=== PATIENT | female | born 1950 | race Caucasian/White ===

== ENCOUNTER 2019-12-30 21:38 | Observation (INO) ==
[2019-12-30] MEDS ORDERED: ORPHENADRINE CITRATE 30 MG/ML VIAL IM ONE (21:44)
--- NOTE | 2019-12-30 21:44 | ERNOTE ---
ER Burn HPI Stated Complaint: pain Time Seen by Provider: 12/30/19 21:40 Source: patient, EMS Exam Limitations: no limitations Immunizations: IMMUNIZATION HX Immunizations Up to Date Yes History of Influenza Vaccine No Allergies/Adverse Reactions: Allergies No Known Allergies Allergy (Verified 12/19/19 09:34) Home Medications: HOME MEDICATIONS acetaminophen 500 mg tablet 500 mg PO Q6H PRN 12/11/19 [Last Taken Unknown] apixaban 5 mg tablet 5 mg PO BID 12/11/19 [Last Taken Unknown] levothyroxine 112 mcg capsule 112 mcg PO DAILY 12/11/19 [Last Taken Unknown] multivitamin 1 tab PO DAILY 12/11/19 [Last Taken Unknown] oxybutynin chloride 10 mg tablet,extended release 24 hr 10 mg PO DAILY 12/11/19 [Last Taken Unknown] Calcium Carbonate/Vitamin D3 [Calcium 600-Vit D3 200 Tablet] 1 tab DAILY 12/19/19 [Last Taken Unknown] HYDROcodone/ACETAMINOPHEN [[place] 5-325 Tablet] 1 - 2 tab PO Q6H PRN #20 tab 12/19/19 [Last Taken 12/30/19 17:30] Metoprolol Tartrate [Lopressor] 25 mg PO DAILY PRN 12/19/19 [Last Taken Unknown] - History of Present Illness Narrative: Patient is a 69-year-old white female with past medical history significant for chronic atrial fibrillation is on Eliquis, had a left knee scope done on 12/19/2019 and had been doing well postoperatively until yesterday when she did fall but states she fell on her right side not the left side where the surgery was. Since then she has been having quite a bit of spasming in her left thigh calf and foot which is created additional pain in her left knee. She has been taking her Lortab without any relief of symptoms. Even tried to tablets without any relief. She did receive 50 mcg of fentanyl via EMS and that helped her symptoms slightly, but states pain still 9 out of 10. Time I saw her she states the pain was getting better. Still concerned that she has these spasms and cramps in her leg. She denies any chest pain or troubles breathing or intermittent claudications. She denies any fevers or chills or urinary symptoms or constipation. She does have a history of hypocalcemia, but no weakness, tingling or numbness that she has had with this. She does take a calcium tablet on a regular basis. She does have hypothyroidism but has not had any issues with her thyroid levels. Review of Systems - Review of Systems Constitutional: Absent: fever, chills, fatigue, malaise EYE: Present: no symptoms reported ENT: Present: no symptoms reported Respiratory: Absent: shortness of breath Cardiology: Absent: chest pain, palpitations Gastrointestinal/Abdominal: Present: no symptoms reported Genitourinary: Present: no symptoms reported Musculoskeletal: Present: See HPI, muscle pain, joint pain Skin: Present: no symptoms reported Neurological: Present: no symptoms reported Endocrine: Present: no symptoms reported Hematologic/Lymphatic: Present: no symptoms reported Psych: Present: no symptoms reported Medical History (Last Reviewed 12/30/19 @ 21:43 by Long Gonzalez MD) Atrial fibrillation Onset Date: Unknown Scoliosis Onset Date: Unknown Cancer of thyroid Onset Date: 04/2019 Surgical History: Surgical History (Last Reviewed 12/30/19 @ 21:43 by Long Gonzalez MD) History of cataract surgery Onset Date: Unknown age 59 approximately History of dilation and curettage Onset Date: Unknown age 22 History of foot surgery Onset Date: Unknown bunion surgery- approx age 40 History of lumbar laminectomy Onset Date: Unknown L3-L4 age 63 History of tubal ligation Onset Date: Unknown age 30 S/P right knee arthroscopy Onset Date: ~2009 Dr. Edwards S/P thyroidectomy Onset Date: ~04/2019 [facility]-thyroid cancer Status post lumbar surgery Onset Date: 2012 laminectomy and fusion L3-4, [facility]-Dr. Rao Family History: Family History (Last Reviewed 12/30/19 @ 21:43 by Long Gonzalez MD) Mother COPD (chronic obstructive pulmonary disease) Father Hypertension CVA (cerebral vascular accident) Blood clot in vein Social History: (Last Reviewed 12/30/19 @ 21:44 by Long Gonzalez MD) Social History: Marital status: lives independently: Yes household members: spouse number of children: 2 current occupational status: retired current occupation: retired Highest education level completed: high school graduate Service: No Tobacco: Smoking Status: Never smoker Alcohol: alcohol intake: current Dietary Habits: caffeine: Yes Physical Exam - Physical Exam General Appearance: Present: wd/wn, alert, mild distress, moderate distress Head Exam: Present: normal inspection, no evidence of injury Eye Exam: Normal inspection: bilateral, PERRL: bilateral, EOMI: bilateral Ears, Nose, Throat: Present: normal ENT inspection Neck: Present: supple Respiratory: Present: no respiratory distress, normal breath sounds, no accessory muscle use, lungs clear Cardiovascular/Chest: Present: regular rate, rhythm Peripheral Pulses: N=norm/S=strong/W=weak/B=bound/A=absent: Dorsalis-pedis (R): Normal, Dorsalis-pedis (L): Normal Gastrointestinal/Abdominal: Present: normal bowel sounds, nontender, nondistended, soft, no organomegaly Extremity Exam: Present: normal inspection, non-tender, no edema, other - Patient has yellow discoloration to the knee which is consistent with normal resolving bruising. There is no erythema or warmth in the knee. There is pain with movement of the leg. Neurological Exam: Present: alert, oriented, normal mood/affect, no motor/sensory deficits Skin Exam: Present: normal color, warm/dry Progress - Results and Orders Patient's Lab Results:: I have reviewed the patient's lab results. Results and Orders: CBC is normal. CMP: - Vital Signs Patient's Vital Signs:: I have reviewed the patient's vital signs. - Progress/Reassessment Chief Complaint: Lower Extremity Pain/ Injury Progress:: Unchanged Progress Note-Subjective: 12/30/19 22:11 Patient states that the Norflex has helped and she has much less pain now. She is able to move her foot and ankle without the spasms that she was having previously. patient is thirsty and requesting to drink water. Pt's BP is improved to 127/72. 12/30/19 22:13 12/30/19 22:59 Patient states that her left knee pain is starting to worsen again. Will do a trial with IV Toradol and do an ice pack to the knee. Labs are all negative for infection or concerns that would cause her to have cramping. Patient is on Eliquis so not concerned about a DVT. 12/30/19 23:00 12/30/19 23:03 Patient initially said that the Toradol seem to be helping some, but as soon as I mentioned discharging her home she said I do not think I can get into the car and then declared that the medicine was not helping. We will try a dose of Dilaudid IV. Will consider also doing a IV Valium. - Transfer of Care Expected Disposition: Admit Additional Notes: Case discussed with Dr. Ruiz who is agreeable to admit the patient to observation for pain control. Discussed with her I do not believe that there is hemarthrosis or significant injury to the knee requiring any imaging at this time or Ortho consultation. We will do IV Dilaudid 1 mg every 2 hours for pain control as I believe this will be adequate and she should be okay to go home in the morning as this seems to be working well for her and she could be switched to oral medications tomorrow. Plan - Plan Plan: Given her history of complaining of muscle spasms we will check potassium and calcium levels. We will do a dose of IV Norflex. We will also check a CBC to be sure there is no concerns for infections though I do not see any concerns on physical exam. With Norflex helping her symptoms, assuming no abnormalities on labs will plan on sending her home on some cyclobenzaprine. Given her pain is not well controlled with her current pain medicines, may try some IV Dilaudid and possibly change her prescription to Dilaudid. Pain is definitely better but patient is very somnolent and difficult to arouse. This point feel she would be incapable of going home and would have some concern with her O2 sats dropping into the mid 80s at times. Feel would be appropriate to at least observe her overnight for pain control and O2 to keep her sats in at least the low 90's. will cover pain with IV Dilaudid but will do a 1 mg IV instead of the 2 mg we gave earlier. We will keep her on 1 L of O2 to keep her sats in the low 90s. We will do as needed Zofran for any nausea that she may have from the pain medicines. Departure Clinical Impression: Muscle spasm of left lower extremity, Failure of outpatient treatment Left knee pain Qualifiers: Chronicity: acute Qualified Code(s): M25.562 - Pain in left knee - Departure Disposition: Still a patient Condition: Stable
[2019-12-30] MEDS ORDERED: ORPHENADRINE CITRATE 30 MG/ML VIAL IV ONE (21:47)
[2019-12-30 22:06] LABS: Hematocrit 38.3 % (37.0-47.0); Hemoglobin 12.9 gm/dL (12.5-16.0); Mean Corpuscular Hemoglobin 29.3 pg (27-31); Mean Corpuscular Hgb Conc 33.7 g/dl (32-36); Mean Platelet Volume 9.8 fl (8-12.5); Neutrophil % 70.6 % (42-75.0); Platelet Count 317 K/mm3 (150-450); Red Cell Distribution Width 12.6 % (11.5-14.0); White Blood Count 8.5 K/mm3 (4.0-10.5)
[2019-12-30 22:20] LABS: Albumin * 3.5 gm/dl (3.4-5.0); Anion Gap 14.7 mmol/L (6.8-13.8); BUN/Creatinine Ratio 14.6 (9.0-21.6); Bilirubin, Total 0.5 mg/dL (0.0-1.1); Ca. Corrected For Albumin 8.8 mg/dL (8.4-10.2); Calcium * 8.7 mg/dL (7.9-10.9); Carbon Dioxide 26.7 mmol/L (24-32.6); Potassium 3.4 mmol/L (3.4-4.6)
[2019-12-30] MEDS ORDERED: KETOROLAC TROMETHAMINE 30 MG/ML VIAL IV ONE (22:36)
[2019-12-30] MEDS ORDERED: HYDROmorphone HCL 2 MG/ML VIAL IV ONE (23:03)
[2019-12-30] MEDS ORDERED: ONDANSETRON HCL/PF 2 MG/ML VIAL IV PRN (23:58)
[2019-12-30] MEDS ORDERED: HYDROmorphone HCL 1 MG/ML DISP.SYRIN IV PRN (23:58)
[2019-12-31] MEDS: ONDANSETRON HCL/PF 2 MG/ML VIAL IV PRN ×3 (01:23→11:29)
--- NOTE | 2019-12-31 11:24 | HPDIS ---
Chief Complaint - Chief Complaint Date of Service: 12/31/19 Time of Service: 10:55 Chief Complaint: I have left knee pain History of Present Illness: 69-year-old female with past medical history of atrial fibrillation and thyroid cancer was brought to the ER by EMS due to significant left knee pain and swelling over the past several days. Patient underwent a left knee arthroscopy by her orthopedic surgeon 2 weeks ago and was discharged home with pain meds however a week later she fell while in her home onto her right side. She reports applying ice to the knee and taking pain medications and the pain from the fall eventually resolved, however several days ago the pain returned and was more severe than before it also was accompanied by muscle spasms that he radiates from her left hip down to her left foot. She reports inadequate control of pain with her prescribed pain meds and had to come to the hospital for care. Patient denies any fevers or chills or any other signs of infection. Medical History (Last Reviewed 12/31/19 @ 00:52 by Tamar Leon RN) Atrial fibrillation Onset Date: Unknown Scoliosis Onset Date: Unknown Cancer of thyroid Onset Date: 04/2019 Surgical History: Surgical History (Last Reviewed 12/31/19 @ 00:52 by Tamar Leon RN) History of cataract surgery Onset Date: Unknown age 59 approximately History of dilation and curettage Onset Date: Unknown age 22 History of foot surgery Onset Date: Unknown bunion surgery- approx age 40 History of lumbar laminectomy Onset Date: Unknown L3-L4 age 63 History of tubal ligation Onset Date: Unknown age 30 S/P right knee arthroscopy Onset Date: ~2009 Dr. Edwards S/P thyroidectomy Onset Date: ~04/2019 [facility]-thyroid cancer Status post lumbar surgery Onset Date: 2012 laminectomy and fusion L3-4, [facility]-Dr. Rao Family History: Family History (Last Reviewed 12/31/19 @ 00:52 by Tamar Leon RN) Mother COPD (chronic obstructive pulmonary disease) Father Hypertension CVA (cerebral vascular accident) Blood clot in vein Social History: (Last Reviewed 12/31/19 @ 00:52 by Tamar Leon RN) Social History: Marital status: lives independently: Yes household members: spouse number of children: 2 current occupational status: retired current occupation: retired Highest education level completed: high school graduate Service: No Tobacco: Smoking Status: Never smoker Alcohol: alcohol intake: current Dietary Habits: caffeine: Yes Peds Patient Hx - Developmental: No Pertinent Hx Peds Patient Hx - Medical: No Pertinent Hx Peds Patient Hx - Cardiac/Respiratory: No Pertinent Hx Peds Patient Hx - Surgical: No Surgical History Patient History - Cancer: No Hx of Cancer Review Of Systems (GEN) - Review of Systems Generalized/Overall Review: Present: No Symptoms Reported EENTM: Present: No Symptoms Reported Respiratory: Present: No Symptoms Reported Cardiac: Present: No Symptoms Reported Abdominal: Present: No Symptoms Reported Genitourinary: Present: No Symptoms Reported Musculoskeletal: Present: Joint Pain - Left knee pain and swelling, Joint Swelling Neurological: Present: No Symptoms Reported Skin: Present: No Symptoms Reported Endocrine: Present: No Symptoms Reported Immunizations: IMMUNIZATION HX Immunizations Up to Date Yes History of Influenza Vaccine No Allergies/Adverse Reactions: Allergies Allergy/AdvReac Type Severity Reaction Status Date / Time No Known Allergies Allergy Verified 12/19/19 09:34 Home Medications: HOME MEDICATIONS acetaminophen 500 mg tablet 500 mg PO Q6H PRN 12/11/19 [Last Taken Unknown] apixaban 5 mg tablet 5 mg PO BID 12/11/19 [Last Taken Unknown] levothyroxine 112 mcg capsule 112 mcg PO DAILY 12/11/19 [Last Taken Unknown] multivitamin 1 tab PO DAILY 12/11/19 [Last Taken Unknown] oxybutynin chloride 10 mg tablet,extended release 24 hr 10 mg PO DAILY 12/11/19 [Last Taken Unknown] Calcium Carbonate/Vitamin D3 [Calcium 600-Vit D3 200 Tablet] 1 tab DAILY 12/19/19 [Last Taken Unknown] Metoprolol Tartrate [Lopressor] 25 mg PO DAILY PRN 12/19/19 [Last Taken Unknown] Cyclobenzaprine HCl 5 mg PO Q8H PRN #20 tab 12/31/19 [Last Taken Unknown] HYDROcodone/ACETAMINOPHEN [[place] 5-325 Tablet] 1 tab PO Q4H PRN #20 tab 12/31/19 [Last Taken Unknown] Naproxen 375 mg PO Q12H #20 tab 12/31/19 [Last Taken Unknown] Ondansetron HCl [Zofran] 8 mg PO Q4H 3 Days #20 tab 12/31/19 [Last Taken Unknown] Exam - Exam Vital Signs: Vital Signs - Last Taken Temp 36.6 C 02/16/20 06:48 Pulse 68 12/31/19 06:48 Resp 20 12/31/19 06:48 BP 116/70 12/31/19 06:48 Pulse Ox 100 12/31/19 08:40 Constitutional: Present: Alert, Oriented x3, Cooperative, Well developed, Well nourished, No distress ENT Exam: Present: normal ENT inspection, hearing grossly normal, pharynx normal, TMs normal Eye Exam: bilateral eye: normal inspection, PERRL, EOMI Neck: Present: non-tender, full range of motion, supple, normal inspection, trachea midline Back Exam: Present: normal inspection, no CVA tenderness, no vertebral tenderness Breasts: Present: Exam deferred Respiratory: Present: chest non-tender, lungs clear, normal breath sounds, no respiratory distress, no accessory muscle use Cardiovascular/Chest: Present: normal peripheral pulses, no chest tenderness, no edema, no gallop, no JVD Peripheral Pulses: carotid (R): 3+, carotid (L): 3+, femoral (R): 3+, femoral (L): 3+, dorsalis-pedis (R): 3+, dorsalis-pedis (L): 3+ Abdomen: Present: Normal bowel sounds, soft, nontender, nondistended, no rebound tenderness, no hepatospenomegaly, no masses /Rectal: Present: Exam deferred Extremity: Present: no pedal edema, no calf tenderness, normal capillary refill, pelvis stable, swelling, other - Left knee swelling and tenderness to palpation. There is no drainage, warmth, erythema, or any other signs of infection. Skin Exam: Present: normal color, warm/dry, no cyanosis Lymphatic: Present: no adenopathy Neurologic: Present: regrader II-XII nml as tested, normal cerebellar test, no motor/sensory deficits, alert, normal mood/affect, oriented x 3 Appearance: Present: appropriate appearance, appropriate insight, neat, no memory impairment Eye contact: Present: cooperative, good eye contact, normal speech Thoughts: Present: normal thought pattern, no apparent hallucination Diagnostic Studies: Abnormal Lab Results 12/30/19 Range/Units 21:55 Anion Gap 14.7 H (6.8-13.8) mmol/L Random Glucose 115 H (70-110) mg/dL Alkaline Phosphatase 48 L (50-170) U/L Laboratory Results WBC 8.5 K/mm3 (4.0-10.5) 12/30/19 21:55 RBC 4.40 M/mm3 (4.2-5.4) 12/30/19 21:55 Hgb 12.9 gm/dL (12.5-16.0) 12/30/19 21:55 Hct 38.3 % (37.0-47.0) 12/30/19 21:55 MCV 87.0 fl (78-100) 12/30/19 21:55 MCH 29.3 pg (27-31) 12/30/19 21:55 MCHC 33.7 g/dl (32-36) 12/30/19 21:55 RDW 12.6 % (11.5-14.0) 12/30/19 21:55 Plt Count 317 K/mm3 (150-450) 12/30/19 21:55 MPV 9.8 fl (8-12.5) 12/30/19 21:55 Immature Gran % (Auto) 0.40 % (0.001-0.429) 12/30/19 21:55 Immature Gran # (Auto) 0.03 K/mm3 (0.000-0.0310) 12/30/19 21:55 Neutrophils % 70.6 % (42-75.0) 12/30/19 21:55 Lymphocytes % 20.8 % (20-51) 12/30/19 21:55 Monocytes % 7.3 % (0.0-9) 12/30/19 21:55 Eosinophils % 0.7 % (0.0-3.0) 12/30/19 21:55 Basophils % 0.2 % (0.0-1.0) 12/30/19 21:55 Nucleated RBC % 0.0 k/mm3 (0-1) 12/30/19 21:55 Neutrophils # 6.0 K/mm3 (1.3-6.0) 12/30/19 21:55 Lymphocytes # 1.76 k/mm3 (1.5-3.5) 12/30/19 21:55 Monocytes # 0.6 k/mm3 (0.0-1.0) 12/30/19 21:55 Eosinophils # 0.1 k/mm3 (0.0-0.7) 12/30/19 21:55 Absolute Basophils 0.0 k/mm3 (0.0-0.1) 12/30/19 21:55 Sodium 139 mmol/L (132-142) 12/30/19 21:55 Plasma Sodium 139 mmol/L (130-142) 12/30/19 21:55 Potassium 3.4 mmol/L (3.4-4.6) 12/30/19 21:55 Chloride 101 mmol/L (97-106) 12/30/19 21:55 Carbon Dioxide 26.7 mmol/L (24-32.6) 12/30/19 21:55 Anion Gap 14.7 mmol/L (6.8-13.8) H 12/30/19 21:55 BUN 14 mg/dL (3-23) 12/30/19 21:55 Creatinine 0.96 mg/dL (0.4-1.4) 12/30/19 21:55 Est GFR (Non-Af Amer) 62 mL/min (60-130) 12/30/19 21:55 BUN/Creatinine Ratio 14.6 (9.0-21.6) 12/30/19 21:55 Random Glucose 115 mg/dL (70-110) H 12/30/19 21:55 Calcium 8.7 mg/dL (7.9-10.9) 12/30/19 21:55 Calcium Adj for Albumin 8.8 mg/dL (8.4-10.2) 12/30/19 21:55 Total Bilirubin 0.5 mg/dL (0.0-1.1) 12/30/19 21:55 AST 24 U/L (0-48) 12/30/19 21:55 ALT 30 U/L (19-67) 12/30/19 21:55 Alkaline Phosphatase 48 U/L (50-170) L 12/30/19 21:55 Total Protein 7.0 gm/dL (6.2-8.2) 12/30/19 21:55 Albumin 3.5 gm/dl (3.4-5.0) 12/30/19 21:55 Assessment/Plan - Narrative Narrative: Patient's orthopedic surgeon was contacted by telephone and the case was presented to him, after which she recommended discharging the patient home with oral NSAIDs, pain medication, antispasmodics and with directions to apply ice pack to the area. He also ordered for the patient to stay off her left lower extremity and not to apply any weight to it. Patient is scheduled to see him in his office tomorrow morning for postop evaluation, he said he would consider a intra-articular steroid injection if needed. Therefore decision to discharge patient with the recommended medications was made. She is currently stable does not have a fever or chills and only complains of pain and nausea due to pain meds. The surgeons orders and recommendations were reported to her and she was told that she would be provided with a prescription. - Assessment/Plan (1) Muscle spasm of left lower extremity Problem: Acute (2) Failure of outpatient treatment Problem: Acute (3) Medial meniscus tear Problem: Acute Qualifiers: Tear current or old: current Encounter type: initial encounter Meniscus tear of knee type: complex Laterality: left Qualified Code(s): S83.232A - Complex tear of medial meniscus, current injury, left knee, initial encounter (4) Osteoarthritis of left knee Problem: Chronic Qualifiers: Osteoarthritis type: primary Qualified Code(s): M17.12 - Unilateral primary osteoarthritis, left knee (5) Left knee pain Problem: Acute Qualifiers: Chronicity: acute Qualified Code(s): M25.562 - Pain in left knee (6) History of recent fall Problem: Acute (7) Nausea Problem: Acute (1) Muscle spasm of left lower extremity Problem: Acute (2) Failure of outpatient treatment Problem: Acute (3) Medial meniscus tear Problem: Acute Qualifiers: Tear current or old: current Encounter type: initial encounter Meniscus tear of knee type: complex Laterality: left Qualified Code(s): S83.232A - Complex tear of medial meniscus, current injury, left knee, initial encounter (4) Osteoarthritis of left knee Problem: Chronic Qualifiers: Osteoarthritis type: primary Qualified Code(s): M17.12 - Unilateral primary osteoarthritis, left knee (5) Left knee pain Problem: Acute Qualifiers: Chronicity: acute Qualified Code(s): M25.562 - Pain in left knee (6) History of recent fall Problem: Acute (7) Nausea Problem: Acute Date of Discharge:: 12/31/19 Hospital Course: Patient is accompanied by her will be taking her home today in his vehicle. They were ordered to allow the patient to be transported in a wheelchair out to the vehicle and once home to ambulate only with a walker and not to bear weight as ordered by the orthopedic surgeon. Patient will be provided with a prescription for additional pain medications, anti-inflammatory medications, antiemetics, and a muscle relaxant. She is ordered to attend her scheduled follow-up appointment with the orthopedic surgeon for evaluation and treatment of her left knee pain. Procedures Performed: none Results and Findings: Lab Pending Results 12/30/19 21:55: WBC 8.5, RBC 4.40, Hgb 12.9, Hct 38.3, MCV 87.0, MCH 29.3, MCHC 33.7, RDW 12.6, Plt Count 317, MPV 9.8, Immature Gran % (Auto) 0.40, Immature Gran # (Auto) 0.03, Neutrophils % 70.6, Lymphocytes % 20.8, Monocytes % 7.3, Eosinophils % 0.7, Basophils % 0.2, Nucleated RBC % 0.0, Neutrophils # 6.0, Ly mphocytes # 1.76, Monocytes # 0.6, Eosinophils # 0.1, Absolute Basophils 0.0 12/30/19 21:55: Sodium 139, Plasma Sodium 139, Potassium 3.4, Chloride 101, Carbon Dioxide 26.7, Anion Gap 14.7 H, BUN 14, Creatinine 0.96, Est GFR (Non-Af Amer) 62, BUN/Creatinine Ratio 14.6, Random Glucose 115 H, Calcium 8.7, Calcium Adj for Albumin 8.8, Total Bilirubin 0.5, AST 24, ALT 30, Alkaline Phosphatase 48 L, Total Protein 7.0, Albumin 3.5 Discharge Location: Home Disposition: Home self-care Condition: Stable Face to Face Encounter completed per [facility] Guidelines: No Discharge Activity: Non-Weight bearing Discharge Diet: General/regular food Prescriptions (Any new or edited meds): Cyclobenzaprine HCl 5 mg PO Q8H PRN #20 tab PRN Reason: Muscle Spasm Transmission Status: Pending to [place], [place] Naproxen 375 mg PO Q12H #20 tab Transmission Status: P[place] to [place] HYDROcodone/ACETAMINOPHEN [[place] 5-325 Tablet] 1 tab PO Q4H PRN #20 tab PRN Reason: Pain Transmission Status: Received by [place] Ondansetron HCl [Zofran] 8 mg PO Q4H 3 Days #20 tab Transmission Status: Pending to [place], [place] Complete Home Medications List: Complete Home Medication List: acetaminophen 500 mg tablet 500 mg PO Q6H PRN 12/11/19 apixaban 5 mg tablet 5 mg PO BID 12/11/19 levothyroxine 112 mcg capsule 112 mcg PO DAILY 12/11/19 multivitamin 1 tab PO DAILY 12/11/19 oxybutynin chloride 10 mg tablet,extended release 24 hr 10 mg PO DAILY 12/11/19 Calcium Carbonate/Vitamin D3 [Calcium 600-Vit D3 200 Tablet] 1 tab DAILY 12/19/19 Metoprolol Tartrate [Lopressor] 25 mg PO DAILY PRN 12/19/19 Cyclobenzaprine HCl 5 mg PO Q8H PRN #20 tab 12/31/19 HYDROcodone/ACETAMINOPHEN [[place] 5-325 Tablet] 1 tab PO Q4H PRN #20 tab 12/31/19 Naproxen 375 mg PO Q12H #20 tab 12/31/19 Ondansetron HCl [Zofran] 8 mg PO Q4H 3 Days #20 tab 12/31/19
[2019-12-31 11:39] VITALS: BP 134/87
== END 2019-12-31 12:45 | disposition home or self-care (01) ==
LOC: MS 21:38 → ER 21:38 → MS 12-31 00:31
PROVIDERS: ADMIT Family Medicine; ATTEND Family Medicine
CPT/HCPCS: 36415; 80053; 85025; 96372; 96374; 96375; 99285; G0378; J2405